=== PATIENT | female | born 1975 | race Caucasian/White ===

== ENCOUNTER 2016-08-17 12:28 | Observation (INO) | payer SELFPAY ==
[~2016-08-17 12:28] MED LIST: ALBUTEROL0.83 MG/ML INH; BACTRIM DS TABL1 TAB PO; CIPRO500 M2 PO; DOXY-LEMMON100 MG PO; FLAGYL500 M1 PO; IBUPROFEN200 M1 PO; PYRIDIUM200 MG PO; ULTRAM50 MG PO
[2016-08-17 13:26] LABS: BASO % 0.3 % (0-2); EOS % 1.8 % (0-7); EOSINOPHIL ABSOLUTE COUNT 0.2 tho/cmm (0.0-0.7); HCT-HEMATOCRIT 38.9 % (34.0-49.0); HGB-HEMOGLOBIN 12.6 gm/dl (12.0-15.5); IMMATURE GRANULOCYTES ABSOLUTE 0.07 tho/cmm (0-0.03); IMMATURE GRANULOCYTES PERCENT 0.7 % (0-0.3); LYMPH % 23.5 % (20-45); LYMPH ABSOLUTE COUNT 2.2 tho/cmm (0.8-4.5); MCH (MEAN CORPUSCULAR HGB) 29.2 pg (28.0-32.0); MCHC MEAN CORPUSCULAR HGB CONC 32.4 % (32.0-36.0); MCV (MEAN CELL VOLUME) 90.3 fl (82.0-96.0); MEAN PLATELET VOLUME 11.1 cmc (9.4-12.4); MONO % 5.2 % (0-12); MONOCYTE ABSOLUTE COUNT 0.5 tho/cmm (0.0-1.2); NEUTROPHIL ABSOLUTE COUNT 6.5 tho/cmm (1.6-8.0); NEUTROPHIL-AUTOMATED 6.5 tho/cmm (1.6-8.0); NEUTROPHILS % 68.5 % (40-80); RED BLOOD COUNT 4.31 mil/cmm (4.00-5.20); RED CELL DISTRIBUTION WIDTH 13.5 % (12.4-16.4); WHITE BLOOD COUNT 9.5 tho/cmm (4.0-10.0)
[2016-08-17 13:44] LABS: PREGNANCY-SERUM NEGATIVE (NEGATIVE)
[2016-08-17 14:20] LABS: ANION GAP 11 mmol/L (0-20); BLOOD UREA NITROGEN 14 mg/dl (6-24); CALCIUM 8.6 mg/dl (8.5-10.5); CARBON DIOXIDE-VENOUS 27 mmol/L (22-32); CHLORIDE 107 mmol/l (96-110); CREATININE 0.77 mg/dl (0.50-1.10); GLUCOSE 97 mg/dL (70-110); SODIUM 140 mmol/L (135-145); eGFR VALUE FOR BLACK >90 mL/Min
[2016-08-17 14:22] LABS: POTASSIUM 4.5 mmol/L (3.7-5.1)
[2016-08-18] MEDS ORDERED: PRILOSEC OTC20 M1 PO (11:04)
== END 2016-08-18 11:24 ==
LOC: EDMED 12:28 → EMR2 16:21 → CAR1 17:02
PROVIDERS: Emergency Medicine; ADMIT Internal Medicine Cardiovascular Disease
DX: R07.89 Other chest pain (principal); Z88.0 Allergy status to penicillin; Z88.1 Allergy status to other antibiotic agents; Z87.891 Personal history of nicotine dependence; Z90.49 Acquired absence of other specified parts of digestive tract
CPT/HCPCS: G0378; J1885; J7030; Q9967